=== PATIENT | female | born 1985 | race Caucasian/White ===

== ENCOUNTER 2018-02-05 16:33 | Inpatient (IN) | payer MEDICAID ==
[~2018-02-05] VITALS: Ht 165.1 cm; Wt 156.5 kg
[~2018-02-05 16:33] MED LIST: CEPH-569 PO; VICODIN
[2018-02-05] MEDS ORDERED: SODIUM CHLORIDE 0.9% 1,000 ML IV ONE (22:55)
[2018-02-05 23:12] LABS: BASOPHILS % 0.6 % (0.0-2.0); EOSINOPHILS % 1.1 % (0.0-5.0); HEMATOCRIT. 40.8 % (36.0-48.0); HEMOGLOBIN. 13.5 g/dL (12.0-16.0); LYMPHOCYTES % 33.5 % (20.0-50.0); MEAN CORPUSCULAR HEMOGLOBIN 28.4 pg (28.0-32.0); MEAN CORPUSCULAR VOLUME 85.6 fL (81.0-99.0); MEAN PLATELET VOLUME 9.2 fl (7.4-10.4); MONOCYTES % 4.5 % (2.0-8.0); NEUTROPHILS % 60.3 % (40.0-76.0); PLATELET 289 x1000/uL (130-400); RED BLOOD CELL COUNT 4.76 mill/uL (4.2-5.4); RED CELL DISTRIBUTION WIDTH 15.4 % (11.6-14.6)
[2018-02-05 23:20] LABS: HCG SCREEN NEGATIVE
[2018-02-05 23:23] LABS: CHLORIDE 105 mEq/L (98-107); ETHANOL BLOOD < 10 mg/dL; INR 0.9; PROTHROMBIN TIME 9.4 sec (9.1-11.1)
[2018-02-05 23:30] LABS: LDL CHOLESTEROL 96 mg/dL (5-100)
[2018-02-06] MEDS ORDERED: ONDANSETRON HCL 4MG/2ML INJ IV ONE (01:15)
[2018-02-06] MEDS ORDERED: MORPHINE SULFATE 4 MG/ML CPJ (NOT FOR IM USE) IV ONE (01:15)
[2018-02-06] MEDS ORDERED: SODIUM CHLORIDE 0.9% 1,000 ML IV SCH (02:20)
[2018-02-06] MEDS ORDERED: IOHEXOL-350 100 ML BOTTLE ONE (04:51)
[2018-02-06 05:20] VITALS: BP 133/73
[2018-02-06 08:00] VITALS: BP 127/85
[2018-02-06] MEDS: ACETAMINOPHEN 325MG TABLET PO PRN ×2 (10:05→20:46)
[2018-02-06] MEDS: ASPIRIN 325MG EC TABLET PO SCH (10:05)
[2018-02-06 12:00] VITALS: BP_SYST 100; BP_SYST 114; BP_DIAS 62; BP_DIAS 65
[2018-02-06] MEDS ORDERED: HYDROCODONE/ACETAMINOPHEN 5/325MG TABLET PO PRN (15:30)
[2018-02-06 16:00] VITALS: BP 157/100
[2018-02-06] MEDS: METHYLPREDNISOLONE 4MG TABLET PO SCH (17:10)
[2018-02-06 20:00] VITALS: BP 148/95
[2018-02-06] MEDS: POLYVINYL ALCOHOL OPHTH DROPS 15ML RIGHTEYE SCH (20:47)
[2018-02-06] MEDS: VALACYCLOVIR HCL 500MG TABLET PO SCH (20:49)
[2018-02-06] MEDS ORDERED: ERYTHROMYCIN BASE 0.5% OPHTH OINT 3.5GM RIGHTEYE SCH (21:00)
[2018-02-06] MEDS: FAMOTIDINE 20MG TABLET PO SCH (23:18)
[2018-02-07] VITALS: BP 114/51
[2018-02-07] MEDS: POLYVINYL ALCOHOL OPHTH DROPS 15ML RIGHTEYE SCH ×3 (00:12→12:26)
[2018-02-07 04:00] VITALS: BP 125/68
[2018-02-07] MEDS: METHYLPREDNISOLONE 4MG TABLET PO SCH (08:39)
[2018-02-07] MEDS: ASPIRIN 325MG EC TABLET PO SCH (08:40)
[2018-02-07] MEDS: FAMOTIDINE 20MG TABLET PO SCH (08:40)
[2018-02-07] MEDS: VALACYCLOVIR HCL 500MG TABLET PO SCH (10:53)
[2018-02-07 12:00] VITALS: BP 125/85
== END 2018-02-07 16:05 | disposition home or self-care (01) | DRG 48 ==
LOC: ER 18:01 → 8WST 02-06 02:21 → EDBEDREQ 02-06 02:24 → EDBEDREQTM 02-06 02:24 → ENRESERV 02-06 03:39
PROVIDERS: ADMIT Internal Medicine; ATTEND Internal Medicine
DX: G51.0 Bell's palsy (principal); E66.01 Morbid (severe) obesity due to excess calories; Z68.43 Body mass index [BMI] 50.0-59.9, adult; Z79.899 Other long term (current) drug therapy
CPT/HCPCS: 36415; 70496; 70498; 71045; 80061; 81025; 82962; 83721; 83735; 83880; 84443; 84484; 84703; 93005; 96361; 96374; 96375; 97162; 99291; G0482; J2270; J2405; J7030; J7509; Q9967

== ENCOUNTER 2020-06-10 09:03 | Emergency (ER) | payer MEDICAID ==
[~2020-06-10] VITALS: Ht 172.7 cm; Wt 111.0 kg
[2020-06-10] MEDS ORDERED: SODIUM CHLORIDE 0.9% 1,000 ML IV ONE (09:30)
[2020-06-10 10:17] LABS: BASOPHILS % 0.6 % (0.0-2.0); EOSINOPHILS % 1.7 % (0.0-5.0); HEMOGLOBIN. 12.4 g/dL (12.0-16.0); LYMPHOCYTES % 32.8 % (20.0-50.0); MEAN CORPUSCULAR HEMOGLOBIN 27.9 pg (28.0-32.0); MEAN CORPUSCULAR VOLUME 85.9 fL (81.0-99.0); MEAN PLATELET VOLUME 9.4 fl (7.4-10.4); MONOCYTES % 5.2 % (2.0-8.0); NEUTROPHILS % 59.7 % (40.0-76.0); PLATELET 316 x1000/uL (130-400); RED BLOOD CELL COUNT 4.42 mill/uL (4.2-5.4); RED CELL DISTRIBUTION WIDTH 15.3 % (11.6-14.6)
[2020-06-10 10:23] LABS: CHLORIDE 105 mEq/L (98-107)
[2020-06-10 10:41] LABS: INR 0.9; PROTHROMBIN TIME 10.2 sec (9.6-11.0)
[2020-06-10 10:43] LABS: HCG SCREEN NEGATIVE
[2020-06-10] MEDS ORDERED: KETOROLAC 15MG/ML VIAL IV ONE (10:45)
[2020-06-10 11:02] LABS: CLARITY URINE CLEAR (CLEAR); COLOR URINE YELLOW (YELLOW); KETONES URINE NEGATIVE (NEGATIVE); LEUKOCYTE ESTERASE URINE NEGATIVE (NEGATIVE); NITRITE URINE NEGATIVE (NEGATIVE); OCCULT BLOOD URINE NEGATIVE (NEGATIVE); PH URINE 6.5 (4.5-8.0); PROTEIN URINE NEGATIVE (NEGATIVE); SPECIFIC GRAVITY URINE 1.026 (1.005-1.030)
[2020-06-10 11:17] LABS: *AMPHETAMINES SCREEN URINE NEGATIVE (NEGATIVE); *BARBITURATES SCREEN URINE NEGATIVE (NEGATIVE); *BENZODIAZEPINES SCREEN URINE NEGATIVE (NEGATIVE); *COCAINE SCREEN URINE NEGATIVE (NEGATIVE)
[2020-06-10 11:18] LABS: CANNABINOID URINE SCREEN NEGATIVE (NEGATIVE); METHADONE URINE SCREEN NEGATIVE (NEGATIVE); OPIATES URINE SCREEN NEGATIVE (NEGATIVE); PHENCYCLIDINE URINE SCREEN NEGATIVE (NEGATIVE)
[2020-06-10] MEDS ORDERED: ACETAMINOPHEN 325MG TABLET PO ONE (12:00)
[2020-06-10] MEDS ORDERED: LIDOCAINE 5% PATCH TOP SCH (12:00)
[2020-06-10] MEDS ORDERED: LIDO700A15 TP (13:04)
[2020-06-10] MEDS ORDERED: IBUP-2029 MT (13:04)
[2020-06-10 14:18] VITALS: BP 110/78
== END 2020-06-10 14:36 | disposition home or self-care (01) ==
LOC: ER 09:03
DX: R10.31 Right lower quadrant pain (principal); I10 Essential (primary) hypertension; E66.9 Obesity, unspecified; Z68.37 Body mass index [BMI] 37.0-37.9, adult
CPT/HCPCS: 36415; 74176; 80053; 80305; 81003; 81025; 83690; 84703; 85025; 85610; 93005; 96361; 96374; 99285; J1885; J7030

== ENCOUNTER 2021-12-02 11:33 | Emergency (ER) | payer MEDICAID ==
[~2021-12-02] VITALS: Ht 167.6 cm; Wt 170.0 kg
[~2021-12-02 11:33] MED LIST changes: +IBUP-2029 MT; +LIDO700A15 TP
[2021-12-02 11:39] VITALS: BP 156/86
== END 2021-12-02 16:38 | disposition left against medical advice (07) ==
LOC: ER 11:33
DX: Z53.21 Procedure and treatment not carried out due to patient leaving prior to being seen by health care provider (principal); E11.65 Type 2 diabetes mellitus with hyperglycemia
CPT/HCPCS: 82962

== ENCOUNTER 2021-12-03 21:55 | Emergency (ER) | payer MEDICAID ==
[~2021-12-03] VITALS: Ht 165.1 cm; Wt 169.0 kg
[2021-12-04] MEDS ORDERED: ONDANSETRON HCL 4MG/2ML INJ IV STA (00:18)
[2021-12-04] MEDS ORDERED: ACETAMINOPHEN 325MG TABLET PO STA (00:18)
[2021-12-04] MEDS ORDERED: SODIUM CHLORIDE 0.9% 1,000 ML IV ONE (00:30)
[2021-12-04 01:09] LABS: BASOPHILS % 0.7 % (0.0-2.0); HEMATOCRIT. 39.4 % (36.0-48.0); HEMOGLOBIN. 12.9 g/dL (12.0-16.0); MEAN CORPUSCULAR HEMOGLOBIN 28.3 pg (28.0-32.0); MEAN CORPUSCULAR VOLUME 86.6 fL (81.0-99.0); MEAN PLATELET VOLUME 10.7 fl (7.4-10.4); MONOCYTES % 5.5 % (2.0-8.0); NEUTROPHILS % 58.8 % (40.0-76.0); PLATELET 251 x1000/uL (130-400); RED BLOOD CELL COUNT 4.54 mill/uL (4.2-5.4); RED CELL DISTRIBUTION WIDTH 16.4 % (11.6-14.6)
[2021-12-04 01:12] LABS: CHLORIDE 100 mEq/L (98-107)
[2021-12-04 02:06] LABS: CLARITY URINE CLEAR (CLEAR); COLOR URINE YELLOW (YELLOW); KETONES URINE 3+ (NEGATIVE); LEUKOCYTE ESTERASE URINE NEGATIVE (NEGATIVE); NITRITE URINE NEGATIVE (NEGATIVE); OCCULT BLOOD URINE NEGATIVE (NEGATIVE); PROTEIN URINE NEGATIVE (NEGATIVE); SPECIFIC GRAVITY URINE 1.046 (1.005-1.030); UROBILINOGEN URINE 0.2 E.U./dL (0.2-1.0)
[2021-12-04 02:13] LABS: HCG SCREEN NEGATIVE
[2021-12-04] MEDS ORDERED: BLOO-1465 MT (02:31)
[2021-12-04] MEDS ORDERED: BLOO-1482 MC (02:31)
[2021-12-04] MEDS ORDERED: METF-873 MT (02:31)
[2021-12-04] MEDS ORDERED: LANC-934 TP (02:31)
[2021-12-04 02:45] VITALS: BP 123/70
== END 2021-12-04 02:45 | disposition home or self-care (01) ==
LOC: ER 21:55
DX: R73.9 Hyperglycemia, unspecified (principal); R03.0 Elevated blood-pressure reading, without diagnosis of hypertension; E66.01 Morbid (severe) obesity due to excess calories; Z68.44 Body mass index [BMI] 60.0-69.9, adult
CPT/HCPCS: 36415; 80053; 81003; 81025; 82962; 83690; 84703; 85025; 96361; 96374; 99283; J2405; J7030

== ENCOUNTER 2021-12-19 13:06 | Emergency (ER) | payer MEDICAID ==
[~2021-12-19] VITALS: Ht 165.1 cm; Wt 160.0 kg
[~2021-12-19 13:06] MED LIST changes: +BLOO-1465 MT; +BLOO-1482 MC; +LANC-934 TP; +METF-873 MT
[2021-12-19 13:08] VITALS: BP 172/90
== END 2021-12-19 16:00 | disposition left against medical advice (07) ==
LOC: ER 13:06
DX: Z53.21 Procedure and treatment not carried out due to patient leaving prior to being seen by health care provider (principal)
CPT/HCPCS: 82962